=== PATIENT | male | born 1950 | race Caucasian/White ===

== ENCOUNTER → 2020-12-17 | Outpatient (CLI) | payer MEDICARE, BC ==
[~2020-12-17] MED LIST: ACCUPRIL20 MG PO; ALDACTONE50 MG PO; B-12500 MCG PO; CYCLOBENZAPRINE10 MG PO; ECOTRIN81 MG PO; ENDOCET 7.5-321 EACH PO; LEVOTHYROXINE75 MC1 PO; LOVENOX30 MG/0.3 SQ; MAGNESIUM OXID500 MG PO; MAGNESIUM250 MG PO; MEDROL DOSEPAK 24 MG PO; NAPROXEN500 MG PO; PERCOCET 10-321 EACH PO; QUINAPRIL HCL20 MG PO; SPIRONOLACTONE50 MG PO; SYNTHROID75 MCG PO; VITAMIN D250000 UNIT PO
[2020-12-17 10:05] LABS: HEMOGLOBIN 16.9 gm/dl (14.0-17.5); RED BLOOD COUNT 4.97 M/UL (4.20-5.50); WHITE BLOOD COUNT 8.6 K/UL (4.5-11.0)
[2020-12-17 10:46] LABS: BUN/CREATININE RATIO 18 (0-10)
== END ==
LOC: OPSV2 09:00
PROVIDERS: Orthopaedic Surgery
DX: Z01.818 Encounter for other preprocedural examination (principal); M12.572 Traumatic arthropathy, left ankle and foot; Z20.822 Contact with and (suspected) exposure to COVID-19
CPT/HCPCS: 36415; 80048; 85027; 93005; U0003

== ENCOUNTER 2020-12-20 07:49 | Day surgery (SDC) | payer MEDICARE, BC ==
[~2020-12-20] VITALS: Ht 180.3 cm; Wt 129.7 kg
[~2020-12-20 07:49] MED LIST changes: -ENDOCET 7.5-321 EACH PO; -LOVENOX30 MG/0.3 SQ
[2020-12-20] MEDS ORDERED: LOVENOX30 MG/0.3 SQ (11:48)
[2020-12-20] MEDS ORDERED: ENDOCET 7.5-321 EACH PO (11:48)
[2020-12-21 14:04] LABS: RED BLOOD COUNT 4.04 M/UL (4.20-5.50)
[2020-12-21 14:25] LABS: HEMOGLOBIN 13.7 gm/dl (14.0-17.5)
[2020-12-21 14:33] LABS: BUN/CREATININE RATIO 17 (0-10)
== END 2020-12-21 17:24 | disposition home or self-care (01) ==
LOC: OR 07:49 → M/S 15:18 → OR 12-21 17:24
PROVIDERS: Nurse Practitioner Family
DX: M19.172 Post-traumatic osteoarthritis, left ankle and foot (principal); G89.18 Other acute postprocedural pain; I10 Essential (primary) hypertension; E03.9 Hypothyroidism, unspecified; E66.01 Morbid (severe) obesity due to excess calories; G47.30 Sleep apnea, unspecified; Z99.89 Dependence on other enabling machines and devices; Z87.891 Personal history of nicotine dependence; Z68.39 Body mass index [BMI] 39.0-39.9, adult; Z79.82 Long term (current) use of aspirin; Z79.1 Long term (current) use of non-steroidal anti-inflammatories (NSAID); Z79.899 Other long term (current) drug therapy
CPT/HCPCS: 36415; 73610; 76000; 80048; 85025; 97162; 97165; C1713; J0171; J0690; J1100; J1650; J2250; J2405; J2704; J2795; J3010; J3370; J7120

== ENCOUNTER → 2021-03-08 | Outpatient (CLI) | payer MEDICARE, BC ==
[~2021-03-08] MED LIST changes: +ENDOCET 7.5-321 EACH PO; +LOVENOX30 MG/0.3 SQ
== END ==
LOC: KOH-I 10:16
DX: M48.061 Spinal stenosis, lumbar region without neurogenic claudication (principal); M51.16 Intervertebral disc disorders with radiculopathy, lumbar region
CPT/HCPCS: 72148

== ENCOUNTER 2021-07-03 05:29 | Inpatient (IN) | payer MEDICARE, BC ==
[~2021-07-03] VITALS: Ht 180.3 cm; Wt 127.0 kg
[~2021-07-03 05:29] MED LIST changes: +CALCIUM PO; +LOW DOSE ASPIRI81 MG PO; +VITAMIN B12 PO; +VITAMIN D325 MCG PO; +ZYRTEC10 MG PO
[2021-07-03 19:34] LABS: HEMOGLOBIN 12.5 gm/dl (14.0-17.5); RED BLOOD COUNT 3.81 M/UL (4.20-5.50)
[2021-07-03 19:49] LABS: BUN/CREATININE RATIO 17 (0-10)
[2021-07-04 05:12] LABS: HEMOGLOBIN 11.6 gm/dl (14.0-17.5); RED BLOOD COUNT 3.49 M/UL (4.20-5.50); WHITE BLOOD COUNT 19.8 K/UL (4.5-11.0)
[2021-07-04 05:49] LABS: BUN/CREATININE RATIO 19 (0-10)
[2021-07-05 04:48] LABS: WHITE BLOOD COUNT 16.6 K/UL (4.5-11.0)
[2021-07-05 04:49] LABS: HEMOGLOBIN 9.5 gm/dl (14.0-17.5); RED BLOOD COUNT 2.92 M/UL (4.20-5.50)
[2021-07-05 05:25] LABS: BUN/CREATININE RATIO 23 (0-10)
[2021-07-06 05:03] LABS: HEMOGLOBIN 9.3 gm/dl (14.0-17.5); RED BLOOD COUNT 2.9 M/UL (4.20-5.50)
[2021-07-06 05:06] LABS: WHITE BLOOD COUNT 11.9 K/UL (4.5-11.0)
[2021-07-06 05:22] LABS: BUN/CREATININE RATIO 14 (0-10)
--- NOTE | 2021-07-06 12:50 | NUR ---
PT ARRIVED TO UNIT FROM ICU, ALERT AND ORIENTED, VSS, NO DISTRESS NOTED, F/C AND IV NOTED, WILL CONTINUE TO MONITOR
[2021-07-07 08:32] LABS: HEMOGLOBIN 8.9 gm/dl (14.0-17.5); RED BLOOD COUNT 2.75 M/UL (4.20-5.50); WHITE BLOOD COUNT 9.4 K/UL (4.5-11.0)
[2021-07-07 08:55] LABS: BUN/CREATININE RATIO 14 (0-10)
[2021-07-08 07:46] LABS: HEMOGLOBIN 8.6 gm/dl (14.0-17.5); RED BLOOD COUNT 2.7 M/UL (4.20-5.50); WHITE BLOOD COUNT 8.2 K/UL (4.5-11.0)
[2021-07-08 08:09] LABS: BUN/CREATININE RATIO 15 (0-10)
[2021-07-08 16:56] LABS: HEMOGLOBIN 9.1 gm/dl (14.0-17.5); RED BLOOD COUNT 2.79 M/UL (4.20-5.50)
[2021-07-08 17:00] LABS: WHITE BLOOD COUNT 15.1 K/UL (4.5-11.0)
[2021-07-08 17:09] LABS: BUN/CREATININE RATIO 12 (0-10)
[2021-07-09 07:13] LABS: HEMOGLOBIN 9.1 gm/dl (14.0-17.5); RED BLOOD COUNT 2.81 M/UL (4.20-5.50); WHITE BLOOD COUNT 14.2 K/UL (4.5-11.0)
[2021-07-09 07:29] LABS: BUN/CREATININE RATIO 16 (0-10)
[2021-07-10 06:47] LABS: RED BLOOD COUNT 2.81 M/UL (4.20-5.50); WHITE BLOOD COUNT 11.4 K/UL (4.5-11.0)
[2021-07-10 07:27] LABS: BUN/CREATININE RATIO 17 (0-10)
--- NOTE | 2021-07-11 06:27 | NUR ---
DURING BEDSIDE REPORT AT 1830 07/10/21, [facility] TOLD ME THAT DR. HERNANDEZ WAS CONCERNED ABOUT THE HEMOVACS AND JENNIFER DRAIN IN REGARDS TO THEIR OUTPUT. THEY TOLD HER NOT TO EMPTY THE DRAINS, AND THAT THEY WOULD BE EMPTYING THEM FROM THEN ON. THERE ARE NO ORDERS FOR ME NOT TO EMPTY THEM, HOWEVER, WHEN I ATTEMPTED TO EMPTY THEM THE PATIENT TOLD ME THAT DR. HERNANDEZ DID NOT WANT ANYONE ELSE TO EMPTY THEM. THE DRAINS ARE NOT COMPLETELY FULL AT THIS TIME, SO I DID NOT EMPTY THEM THIS SHIFT.
[2021-07-11 06:59] LABS: RED BLOOD COUNT 2.92 M/UL (4.20-5.50); WHITE BLOOD COUNT 9.8 K/UL (4.5-11.0)
[2021-07-11 07:18] LABS: BUN/CREATININE RATIO 17 (0-10)
[2021-07-12 07:02] LABS: HEMOGLOBIN 9.3 gm/dl (14.0-17.5); RED BLOOD COUNT 2.94 M/UL (4.20-5.50); WHITE BLOOD COUNT 10.6 K/UL (4.5-11.0)
[2021-07-12 07:23] LABS: BUN/CREATININE RATIO 15 (0-10)
--- NOTE | 2021-07-12 17:01 | NUR ---
PATIENT BLADDER SCANNED. 941 NOTED ON BLADDER SCANNER. PRIMARY MD DR. NEWTON AND STALIN STOCKTON NOTIFIED. NEW ORDER TO STRAIGHT CATH PT, IF PATIENT RETAINS URINE THROUGH OUT NIGHT ANCHOR PAPPAS. PATIENT TOLERATED STRAIGHT CATH WELL. 1250ML URINE OBTAINED
--- NOTE | 2021-07-12 21:43 | NUR ---
TELE CALLED TO INFORM ME OF A 14 BEAT RUN OF VTACH. CALLED HOSPITIALIST STRIKE ON MACHINE OPERATOR TO NOTIFY HER. PATIENT IS ASYMPTOMATIC WITH NO CHEST PAIN AT THIS TIME. RUNNING SINUS RHYTHM WITH HEART RATE OF 75 NOW. NO NEW ORDERS AT THIS TIME. WILL CONTINUE TO MONITOR.
--- NOTE | 2021-07-13 06:16 | NUR ---
DESPITE ADEQUATE URINARY OUTPUT I ATTEMPTED TO BLADDER SCAN THE PATIENT DUE TO RECENT TROUBLES WITH URINATION, HOWEVER, THE PATIENT REFUSED TO ALLOW ME TO DO SO AND STATED THAT HE WANTED TO TALK TO THE DOCTOR ABOUT THE SITUATION FIRST. I ALSO ATTEMPTED TO EMPTY HIS JENNIFER AND HEMOVACS TO WHICH HE REFUSED SAYING HE HAD JUST GOTTEN COMFORTABLE.
[2021-07-13 06:54] LABS: HEMOGLOBIN 9.4 gm/dl (14.0-17.5); RED BLOOD COUNT 2.96 M/UL (4.20-5.50); WHITE BLOOD COUNT 11.8 K/UL (4.5-11.0)
[2021-07-13 07:37] LABS: BUN/CREATININE RATIO 14 (0-10)
[2021-07-14 09:48] LABS: HEMOGLOBIN 9.3 gm/dl (14.0-17.5); RED BLOOD COUNT 3.02 M/UL (4.20-5.50)
[2021-07-14 09:53] LABS: WHITE BLOOD COUNT 8.5 K/UL (4.5-11.0)
[2021-07-14 10:11] LABS: BUN/CREATININE RATIO 12 (0-10)
[2021-07-15 06:38] LABS: HEMOGLOBIN 8.7 gm/dl (14.0-17.5); RED BLOOD COUNT 2.85 M/UL (4.20-5.50); WHITE BLOOD COUNT 7.9 K/UL (4.5-11.0)
[2021-07-15 07:11] LABS: BUN/CREATININE RATIO 15 (0-10)
[2021-07-16 07:37] LABS: HEMOGLOBIN 8.6 gm/dl (14.0-17.5); RED BLOOD COUNT 2.89 M/UL (4.20-5.50); WHITE BLOOD COUNT 8.2 K/UL (4.5-11.0)
[2021-07-16 08:44] LABS: BUN/CREATININE RATIO 12 (0-10)
[2021-07-17 07:08] LABS: HEMOGLOBIN 9.4 gm/dl (14.0-17.5); RED BLOOD COUNT 3.04 M/UL (4.20-5.50); WHITE BLOOD COUNT 8.4 K/UL (4.5-11.0)
[2021-07-17 07:18] LABS: BUN/CREATININE RATIO 13 (0-10)
== END 2021-07-20 15:03 | disposition home or self-care (01) | DRG 454 ==
LOC: OR 05:29 → M/S 18:50 → CCU 18:50 → PROG CARE 07-06 12:49 → M/S 07-08 01:45
PROVIDERS: Internal Medicine; Orthopaedic Surgery; ADMIT Internal Medicine
PROC: 01NB0ZZ Release Lumbar Nerve, Open Approach (ICD-10-PCS; 2021-07-03)
PROC: 4A10X4G Monitoring of Central Nervous Electrical Activity, Intraoperative, External Approach (ICD-10-PCS; 2021-07-03)
PROC: 0SB20ZZ Excision of Lumbar Vertebral Disc, Open Approach (ICD-10-PCS; 2021-07-03)
PROC: 0SG10AJ Fusion of 2 or more Lumbar Vertebral Joints with Interbody Fusion Device, Posterior Approach, Anterior Column, Open Approach (ICD-10-PCS; principal; 2021-07-03 07:30)
PROC: 0SG1071 Fusion of 2 or more Lumbar Vertebral Joints with Autologous Tissue Substitute, Posterior Approach, Posterior Column, Open Approach (ICD-10-PCS; 2021-07-03 07:30)
PROC: 0J970ZZ Drainage of Back Subcutaneous Tissue and Fascia, Open Approach (ICD-10-PCS; 2021-07-08)
DX: M48.061 Spinal stenosis, lumbar region without neurogenic claudication (principal); D62 Acute posthemorrhagic anemia; E66.2 Morbid (severe) obesity with alveolar hypoventilation; Z20.822 Contact with and (suspected) exposure to COVID-19; M96.820 Accidental puncture and laceration of a musculoskeletal structure during a musculoskeletal system procedure; M96.842 Postprocedural seroma of a musculoskeletal structure following a musculoskeletal system procedure; E87.1 Hypo-osmolality and hyponatremia; N13.8 Other obstructive and reflux uropathy; I47.1 Supraventricular tachycardia; M47.26 Other spondylosis with radiculopathy, lumbar region; I08.2 Rheumatic disorders of both aortic and tricuspid valves; M51.26 Other intervertebral disc displacement, lumbar region; E03.9 Hypothyroidism, unspecified; I25.10 Atherosclerotic heart disease of native coronary artery without angina pectoris; E11.40 Type 2 diabetes mellitus with diabetic neuropathy, unspecified; N28.9 Disorder of kidney and ureter, unspecified; I10 Essential (primary) hypertension; M79.89 Other specified soft tissue disorders; E78.5 Hyperlipidemia, unspecified; B19.20 Unspecified viral hepatitis C without hepatic coma; M51.16 Intervertebral disc disorders with radiculopathy, lumbar region; R26.81 Unsteadiness on feet; Y83.8 Other surgical procedures as the cause of abnormal reaction of the patient, or of later complication, without mention of misadventure at the time of the procedure; N40.1 Benign prostatic hyperplasia with lower urinary tract symptoms; K59.03 Drug induced constipation; T50.995A Adverse effect of other drugs, medicaments and biological substances, initial encounter; R33.9 Retention of urine, unspecified; I95.89 Other hypotension; R53.81 Other malaise; Z98.1 Arthrodesis status; Z90.49 Acquired absence of other specified parts of digestive tract; Z68.39 Body mass index [BMI] 39.0-39.9, adult
CPT/HCPCS: ECHO; 36415; 72100; 72110; 76000; 80048; 81001; 83735; 84295; 84439; 84443; 85025; 85027; 86850; 86900; 86901; 87070; 87086; 87205; 93306; 93925; 97110-GP-CQ; 97116; 97116-GP-CQ; 97162; 97164; 97165; 97168; 97530; 97530-GP-CQ; 97535; C1713; C1762; J0690; J1040; J1100; J1170; J1200; J1650; J1885; J2250; J2370; J2405; J2704; J2710; J3010; J3260; J3370; J3475; J7030; J7040; J7120; P9045; Q9967; U0002; U0003

== ENCOUNTER 2021-09-13 09:40 | Emergency (ER) | payer MEDICARE, BC ==
[2021-09-13 10:27] LABS: HEMOGLOBIN 10.4 gm/dl (14.0-17.5); RED BLOOD COUNT 4.22 M/UL (4.20-5.50); WHITE BLOOD COUNT 7.6 K/UL (4.5-11.0)
[2021-09-13 10:50] LABS: BUN/CREATININE RATIO 25 (0-10)
[2021-09-13] MEDS ORDERED: ANTIVERT50 MG PO (12:37)
[2021-09-13] MEDS ORDERED: MEDROL DOSEPAK 24 MG PO (12:37)
== END 2021-09-13 12:32 | disposition home or self-care (01) ==
LOC: ER1 09:40
PROVIDERS: Emergency Medicine
DX: R42 Dizziness and giddiness (principal); I10 Essential (primary) hypertension
CPT/HCPCS: 70496; 70498; 71045; 80053; 81001; 82550; 82553; 84484; 85025; 85610; 93005; 96374; 99284; J1100; Q9967

== ENCOUNTER → 2022-01-10 | Outpatient (CLI) | payer MEDICARE, BC ==
[~2022-01-10] MED LIST changes: +ANTIVERT50 MG PO
== END ==
LOC: CT 12:08
DX: R91.8 Other nonspecific abnormal finding of lung field (principal); R93.89 Abnormal findings on diagnostic imaging of other specified body structures; N28.9 Disorder of kidney and ureter, unspecified
CPT/HCPCS: 36415; 71260; 82565; 84520; Q9967

== ENCOUNTER → 2022-02-03 | Outpatient (CLI) | payer MEDICARE, BC | LOC: CT 13:13 | DX: N28.89 Other specified disorders of kidney and ureter (principal); N28.9 Disorder of kidney and ureter, unspecified; N28.1 Cyst of kidney, acquired; K74.60 Unspecified cirrhosis of liver | CPT/HCPCS: 74170; Q9967 ==